=== PATIENT | male | born 1965 | race Caucasian/White ===

== ENCOUNTER 2024-12-16 20:39 | Emergency (ER) | payer OTHER, SELFPAY ==
[2024-12-16 20:45] VITALS: BP 128/89; PULSE 109; O2SAT 98; BMI 26.6
--- NOTE | 2024-12-16 20:50 | ECG_ITS ---
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
--- NOTE | 2024-12-16 20:52 | ED.GENADUL1 ---
HPI HPI - General Adult General Chief complaint: Psychiatric Symptoms Stated complaint: OTHER Time Seen by Provider: 12/16/24 20:49 History of Present Illness HPI narrative: [place] State police called keith because of his behavior. Sofyareji states he made comments that concerned them he may be suicidal. He was not very cooperative. Transferred to the ER by Keith. He has alcohol on breath . He is rocking back and forth on the stretcher stating he has PTSD. States he lives in [place]. Also complaining of chest pain and then denying he has chest pain. He is requesting a cigarette. States he won't let us do any testing until he gets a cigarettes. Turning down nicotine patch. Related Data Allergies Allergy/AdvReac Type Severity Reaction Status Date / Time aspirin AdvReac Mild Vomiting Verified 12/16/24 20:45 Review of Systems ROS Status of ROS 10 or more systems reviewed and unremarkable except as noted in history and below PFSH PFSH Social History Little interest or pleasure in doing things: more than half the days Feeling down, depressed, or hopeless: several days Exam Constitutional Vital Signs, click to edit/add: Last Vital Signs Pulse 81 12/17/24 05:55 Resp 16 12/17/24 05:55 BP 144/93 H 12/17/24 05:55 Pulse Ox 96 12/17/24 05:55 O2 Del Method Room Air 12/16/24 20:45 Common normals: oriented x3, alert and well nourished Eye Common normals: EOMs intact bilaterally and conjunctivae normal Respiratory Common normals: normal respiratory effort, no retractions, no use of accessory muscles and clear to auscultation bilaterally Cardio Rate: tachycardic GI Common normals: Normal to inspection, nondistended, normoactive bowel sounds present and soft to palpation Other: abdomen exam initially he pulled back as if he was uncomfortable. stated he did not have any pain and when re examined he was no longer tender Extremity Common normals: normal to inspection and full ROM Neuro Common normals: oriented x3, CN's II-XII intact bilaterally, moves all extremities and no focal motor deficits Psych Attitude: uncooperative Course Vital Signs Vital signs: Vital Signs Pulse Rate 109 H 12/16/24 20:45 Respiratory Rate 19 12/16/24 20:45 Blood Pressure 128/89 12/16/24 20:45 Pulse Oximetry 98 12/16/24 20:45 Oxygen Delivery Method Room Air 12/16/24 20:45 Pulse Rate 81 12/17/24 05:55 Respiratory Rate 16 12/17/24 05:55 Blood Pressure 144/93 H 12/17/24 05:55 Pulse Oximetry 96 12/17/24 05:55 Oxygen Delivery Method Room Air 12/16/24 20:45 Medical Decision Making MDM Narrative Medical decision making narrative: [place] He has pulled over on the side of the road. State police stop to investigate and felt he was acting abnormal and called squad. Squad concern about possible suicide ideation. Patient denying any suicide. He is from [place]. He complained of chest pain. EKG normal and first troponin neg. alcohol level 250. Patient advised we will need to watch him for the next 6-7 hours. He is now willing to take ativan to help him relax. patient observed all night and was cooperative and slept most of the time. repeat alchol level 99.He is awake and has steady gait. Denying any thoughts of suicide. labs unremarkable except mild elevated LFTs and RBS 162. He has no outward signs of withdrawal from alcohol. States he does not have a history of alcohol withdrawal. Will plan discharge at this time Lab Data Labs: Lab Results 12/16/24 12/17/24 Range/Units 21:02 05:54 WBC 11.5 H (4.0-11.0) 10^3/uL RBC 4.80 (4.70-6.10) 10^6/uL Hgb 15.5 (14.0-18.0) g/dL Hct 43.9 (42.0-54.0) % MCV 91.5 (80.0-94.0) fL MCH 32.3 (25.9-34.0) pg MCHC 35.3 H (29.9-35.2) g/dL RDW 13.2 (11.0-15.0) % Plt Count 246 (150-450) 10^3/uL MPV 8.9 L (9.5-13.5) fL Neut % (Auto) 57.5 (43.0-75.0) % Lymph % (Auto) 31.9 (20.5-60.0) % Bailey % (Auto) 7.9 (1.7-12.0) % Eos % (Auto) 1.6 (0.9-7.0) % Baso % (Auto) 0.8 (0.2-2.0) % Neut # (Auto) 6.6 H (1.4-6.5) 10^3/uL Lymph # (Auto) 3.7 (1.2-3.8) 10^3/uL Bailey # (Auto) 0.9 H (0.3-0.8) 10^3/uL Eos # (Auto) 0.2 (0.0-0.7) 10^3/uL Baso # (Auto) 0.1 (0.0-0.1) 10^3/uL Abs Immat Gran (auto) 0.04 H (0.00-0.03) 10^3/uL Imm/Tot Granulo (auto) 0.3 (0.0-0.5) % Sodium 137 (136-145) mmol/L Potassium 3.6 (3.5-5.1) mmol/L Chloride 100 (98-107) mmol/L Carbon Dioxide 23.4 (21.0-32.0) mmol/L Anion Gap 17.2 BUN 19.0 H (7.0-18.0) mg/dL Creatinine 1.08 (0.70-1.30) mg/dL Est GFR ( Amer) >60 (>=60 mL/min/1.73m^2) Est GFR (Non-Af Amer) >60 (>=60 mL/min/1.73m^2) BUN/Creatinine Ratio 17.6 Glucose 162 H (74-106) mg/dL Calcium 8.8 (8.5-10.1) mg/dL Total Bilirubin 0.3 (0.2-1.0) mg/dL Direct Bilirubin 0.1 (0.0-0.2) mg/dL AST 55 H (15-37) U/L ALT 78 H (16-63) U/L Alkaline Phosphatase 97 (46-116) U/L Troponin I High Sens 7.5 (4.0-76.1) pg/mL Total Protein 7.5 (6.4-8.2) g/dL Albumin 3.9 (3.4-5.0) g/dL Globulin 3.6 g/dL Albumin/Globulin Ratio 1.1 Lipase 29.0 (16.0-77.0) U/L Ethanol Quant 250 91 mg/dL Discharge Plan Discharge Chief Complaint: Psychiatric Symptoms Clinical Impression: Alcohol intoxication Patient Disposition: Home, Self-Care Print Language: Bahraini Instructions: Alcohol Intoxication (ED) Referrals: Physician,Non-Staff, MD [Primary Care Provider] - 1 week
[2024-12-16 21:11] LABS: Hematocrit 43.9 % (42.0-54.0); Hemoglobin 15.5 g/dL (14.0-18.0); Immature Granulocytes Abs Auto 0.04 10^3/uL (0.00-0.03); Immature Granulocytes Pct Auto 0.3 % (0.0-0.5); Lymphocytes Absolute Auto 3.7 10^3/uL (1.2-3.8); Mean Corpuscular HGB Conc 35.3 g/dL (29.9-35.2); Mean Corpuscular Hemoglobin 32.3 pg (25.9-34.0); Mean Corpuscular Volume 91.5 fL (80.0-94.0); Platelet Count 246 10^3/uL (150-450); Red Blood Count 4.80 10^6/uL (4.70-6.10); White Blood Count 11.5 10^3/uL (4.0-11.0)
--- NOTE | 2024-12-16 21:12 | PC.NURSE ---
this patient allowed us to complete and 12 lead ekg and blood draw. at this time this patient lying quietly supine on the bed. but at time this patient has episode i want to leave and i need a cigarette I keep jose this patient we have make sure you are not have a heart attack since you were hooding you chest when you arrived. I am sorry but bruce can not smoke here, this hospital is a smoke free hospital. I can ask for nicotine patch for you. those thing are shit
[2024-12-16 21:27] LABS: Alanine Aminotransferase 78 U/L (16-63); Albumin Globulin Ratio 1.1; Albumin Level 3.9 g/dL (3.4-5.0); Alkaline Phosphatase 97 U/L (46-116); Aspartate Amino Transferase 55 U/L (15-37); Globulin 3.6 g/dL; Lipase 29.0 U/L (16.0-77.0); Total Protein 7.5 g/dL (6.4-8.2)
--- NOTE | 2024-12-16 21:27 | PC.NURSE ---
this patient is lying prone on the bed quietly and at time moves his feet
[2024-12-16 21:31] LABS: Anion Gap 17.2; Blood Urea Nitrogen 19.0 mg/dL (7.0-18.0); Calcium 8.8 mg/dL (8.5-10.1); Carbon Dioxide 23.4 mmol/L (21.0-32.0); Chloride 100 mmol/L (98-107); Estimated GFR (African America >60 (>=60 mL/min/1.73m^2); Estimated GFR (Non-African Ame >60 (>=60 mL/min/1.73m^2); Glucose 162 mg/dL (74-106); Potassium 3.6 mmol/L (3.5-5.1); Sodium 137 mmol/L (136-145)
--- NOTE | 2024-12-16 21:41 | PC.NURSE ---
Dr Braxton at bedside offering medication to relax this patient, because this patient has a episode of yelling. this patient refused Dr Braxton offer of medication and said I am ok i offer him a warm blanket, and this patient refused
--- NOTE | 2024-12-16 21:46 | PC.NURSE ---
this patient asking again for cigarette, I replied neal bruce ca not have one, but i can get you a patch. this patient replied lalak that patch this patient ask for a warm blanket, a warm blanket was given to this patient i remind this patient if he changes his mind about medication let me known and this patient replied I don't want any medication. this patient is now lying on his right on the bed with the warm blanket on him
--- NOTE | 2024-12-16 22:18 | PC.NURSE ---
per Dr Braxton this patient has been made aware that he will be here for about additional 6 hours, his alcohol level is to high. plus he agreed for oral medication
--- NOTE | 2024-12-16 22:23 | PC.NURSE ---
I asked Dr Braxton if i should call the [facility], and Dr Braxton said No
[2024-12-16] MEDS: LORAZEPAM 1 MG TABLET PO (22:27)
--- NOTE | 2024-12-16 23:06 | PC.NURSE ---
i asked this patient if i could get a set of vital signs, this patient replied no
--- NOTE | 2024-12-17 01:13 | PC.NURSE ---
this patient is now supine on the bed sleeping
[2024-12-17 05:55] VITALS: BP 144/93; PULSE 81; O2SAT 96
== END 2024-12-17 08:05 | disposition home or self-care (01) ==
PROVIDERS: Emergency Provider Internal Medicine
DX: F10.129 Alcohol abuse with intoxication, unspecified (principal); Y90.8 Blood alcohol level of 240 mg/100 ml or more; R07.9 Chest pain, unspecified; F43.10 Post-traumatic stress disorder, unspecified
CPT/HCPCS: 36415; 80048; 80076; 80320; 83690; 84484; 85025; 93005; 99284